=== PATIENT | female | born 1960 | race Caucasian/White ===

== ENCOUNTER 2024-04-04 19:50 | Inpatient (IN) ==
[2024-04-04] MEDS: Lactated Ringers 1000 ml BAG 1,000 ML IV ONE (20:16)
[2024-04-04] MEDS: Morphine 4 MG/ML VIAL (1 ml) IV ONE (20:16)
[2024-04-04] MEDS: Ondansetron 4 mg VIAL 2 MG/ML 2 ml VIAL IV ONE (20:16)
[2024-04-04 20:17] LABS: ABS Eosinophils 0.1 10^3/uL (0.0-0.5); ABS Monocytes 0.5 10^3/uL (0.0-0.9); ABS Neutrophils 3.6 10^3/uL (1.5-7.6); Eosinophil % 1.9 %; Hematocrit 37.1 % (35-45); Hemoglobin 12.7 g/dL (11.5-14.3); Lymphocyte % 19.2 %; Mean Corpuscular Hemoglobin 30.2 pg (27-33); Mean Corpuscular Hgb Conc 34.3 g/dL (31-36); Mean Corpuscular Volume 87.9 fL (80-97); Mean Platelet Volume 6.6 fL (7.5-11.2); Platelet Count 424 10^3/uL (150-450); Red Blood Count 4.22 10^6/uL (3.63-4.92); Red Cell Distribution Width 14.3 % (12-17); White Blood Count 5.3 10^3/uL (3.8-11.8)
[2024-04-04 21:03] LABS: Albumin 4.2 g/dL (3.5-5.7); Albumin/Globulin Ratio 1.5 (1-3); Calcium 9.7 mg/dL (8.6-10.3); Creatinine, Serum 0.82 mg/dL (0.51-0.95); Globulin 2.8 g/dL (2-4); Potassium 4.8 mmol/L (3.5-5.0); Total Bilirubin 0.3 mg/dL (0.2-1.0); eGFR CKD-EPI 80.8 (>60)
[2024-04-04] MEDS ORDERED: Acetaminophen IV 1 GM/100ML 1,000 MG/100 ML BAG IV PRN (22:47)
[2024-04-05] MEDS: Morphine 2 MG/ML SYRINGE IV PRN (01:39)
[2024-04-05] MEDS ORDERED: Lidocaine 1% MPF 5 ML VIAL ONE (10:33)
[2024-04-05] MEDS: fentaNYL 100 mcg/2 ml 50 MCG/ML VIAL IV SLOW PU PRN (21:32)
[2024-04-06] MEDS: Morphine 2 MG/ML SYRINGE IV PRN (00:10)
[2024-04-06] MEDS ORDERED: Metoclopramide 5 MG/ML VIAL (10 mg) IV PRN (08:11)
[2024-04-06] MEDS ORDERED: Naloxone 0.4 mg VIAL 0.4 mg/ml 1 ml VIAL IV PRN (08:11)
[2024-04-06] MEDS ORDERED: fentaNYL 100 mcg/2 ml 50 MCG/ML VIAL IV PRN (08:11)
[2024-04-06] MEDS ORDERED: Ondansetron 4 mg VIAL 2 MG/ML 2 ml VIAL IV PRN (08:11)
[2024-04-06] MEDS ORDERED: ceFAZolin 2 GM PREMIX 2 GM/50 ML BAG ONE (08:32)
[2024-04-06] MEDS ORDERED: NS 0.45% 1000 ml BAG 1,000 ML IV SCH (09:00)
[2024-04-06] MEDS ORDERED: fentaNYL 100 mcg/2 ml 50 MCG/ML VIAL ONE ×3 (10:43→14:36)
[2024-04-06] MEDS ORDERED: Midazolam 2 mg/2 ml VIAL 1 mg/ml 2 ml VIAL (2 mg) ONE (11:01)
[2024-04-06] MEDS ORDERED: ROPIVACAINE 5 MG/ML 30 ML BTL (0.5%) ONE (11:01)
[2024-04-06] MEDS ORDERED: Lidocaine 2% PF 5 ML VIAL ONE (11:02)
[2024-04-06] MEDS ORDERED: Bupivacaine 0.25% SDV 30 ML ONE (11:38)
[2024-04-06] MEDS: Acetaminophen IV 1 GM/100ML 1,000 MG/100 ML BAG IV ONE (14:11)
[2024-04-06] MEDS: Scopolamine 1 mg/72hr PATCH TRANSDERM ONE (14:11)
[2024-04-06] MEDS: Lactated Ringers 1000 ml BAG 1,000 ML IV SCH (14:11)
[2024-04-06] MEDS: Buffered Lidocaine 1% SYRIN 1 ml INTRADERM ONE (14:11)
[2024-04-06] MEDS ORDERED: Morphine 2 MG/ML SYRINGE IV PRN ×2 (17:26→18:33)
[2024-04-06] MEDS: ceFAZolin 1 GM ADVAN 1 GM in NS 0.9% 50 ML 50 ML IVPB SCH (20:10)
[2024-04-07 06:11] LABS: ABS Eosinophils 0.1 10^3/uL (0.0-0.5); ABS Lymphocytes 0.6 10^3/uL (1.0-4.8); ABS Monocytes 0.6 10^3/uL (0.0-0.9); ABS Neutrophils 4.1 10^3/uL (1.5-7.6); Eosinophil % 1.1 %; Hematocrit 31.8 % (35-45); Hemoglobin 10.9 g/dL (11.5-14.3); Lymphocyte % 11.3 %; Mean Corpuscular Hemoglobin 30.3 pg (27-33); Mean Corpuscular Hgb Conc 34.4 g/dL (31-36); Mean Corpuscular Volume 87.9 fL (80-97); Platelet Count 304 10^3/uL (150-450); Red Blood Count 3.61 10^6/uL (3.63-4.92); Red Cell Distribution Width 14.5 % (12-17); White Blood Count 5.3 10^3/uL (3.8-11.8)
[2024-04-07 14:18] VITALS: BP 115/69
== END 2024-04-07 17:32 | disposition home or self-care (01) | DRG 493 ==
LOC: ED 19:50 → EDHOLD 22:43 → SUATTDRO 22:43 → SSU 04-05 15:08
PROVIDERS: ADMIT Internal Medicine; ATTEND Student in an Organized Health Care Education/Training Program